=== PATIENT | female | born 1960 | race African-American/Black ===

== ENCOUNTER 2024-11-17 15:04 | Inpatient (IN) | payer MEDICARE, BC ==
[~2024-11-17] VITALS: Ht 154.9 cm; Wt 65.8 kg
[2024-11-17 16:41] LABS: DIFFERENTIAL COMMENT 0; EOSINOPHILS % 1.9 % (0.0-5.0); HEMOGLOBIN. 9.7 g/dL (12.0-16.0); LYMPHOCYTES % 12.5 % (20.0-50.0); MEAN CORPUSCULAR HEMOGLOBIN 25.3 pg (28.0-32.0); MEAN CORPUSCULAR HGB CONC 33.6 g/dL (31.0-37.0); MEAN CORPUSCULAR VOLUME 75.3 fL (81.0-99.0); MEAN PLATELET VOLUME 6.7 fl (7.4-10.4); MONOCYTES % 6.5 % (2.0-8.0); NEUTROPHILS % 78.1 % (40.0-76.0); PLATELET 328 x1000/uL (130-400); RED BLOOD CELL COUNT 3.84 mill/uL (4.2-5.4); RED CELL DISTRIBUTION WIDTH 19.9 % (11.6-14.6); WHITE BLOOD COUNT 7.3 x1000/uL (4.5-11.0)
[2024-11-17 16:47] LABS: CHLORIDE 89 mEq/L (98-107); POTASSIUM 5.7 mEq/L (3.5-5.1); SODIUM 127 mEq/L (136-145)
[2024-11-17 16:48] LABS: CALCIUM 8.8 mg/dL (8.7-10.4); CARBON DIOXIDE 28 mEq/L (21-32)
[2024-11-17 16:53] LABS: GLUCOSE 102 mg/dL (70-105); UREA NITROGEN BLOOD 43 mg/dL (9-23)
[2024-11-17] MEDS: LABETALOL 5MG/ML 4ML INJ IV ONE (17:05)
[2024-11-17] MEDS: IOHEXOL-350 100 ML BOTTLE ONE (17:11)
[2024-11-17] MEDS: NITROGLYCERIN 0.1MG/HR PATCH TOP ONE (17:12)
[2024-11-17 17:14] LABS: CREATININE 14.1 mg/dL (0.6-1.0); ETHANOL BLOOD < 10 mg/dL (<10)
[2024-11-17 17:56] LABS: PROTHROMBIN TIME 10.7 sec (9.6-11.0)
[2024-11-17 20:00] VITALS: BP 159/76; PULSE 87; RESP 18; TEMP 37.2; O2SAT 99
[2024-11-17] MEDS ORDERED: LABETALOL 5MG/ML 4ML INJ IV PRN (20:15)
[2024-11-17] MEDS: DEXT 5%/0.45% NACL 1000ML 1,000 ML IV SCH (20:30)
[2024-11-17] MEDS ORDERED: [UNRECOGNIZED DRUG - CODE] PO (20:46)
[2024-11-17] MEDS ORDERED: ATOR20TA65 PO (20:46)
[2024-11-17] MEDS ORDERED: AMLO5TAB88 PO (20:46)
[2024-11-17] MEDS ORDERED: LOSA100T33 PO (20:46)
[2024-11-17] MEDS: ATORVASTATIN CALCIUM 40MG TABLET PO SCH (23:10)
[2024-11-18] VITALS (8 sets, daily range): BP systolic 135–193; BP diastolic 61–94; PULSE 80–89; RESP 16–19; TEMP 36.2–36.7; O2SAT 99–100
[2024-11-18] MEDS: HYDRALAZINE 20MG/ML VIAL IV PRN (04:55)
[2024-11-18 06:57] LABS: HEPATITIS B SURFACE ANTIGEN NEGATIVE (Negative)
[2024-11-18 07:18] LABS: HEPATITIS C AB NON REACTIVE (Neg) (Negative)
[2024-11-18] MEDS: CLOPIDOGREL 75MG TABLET PO SCH (09:00)
[2024-11-18] MEDS: HYDRALAZINE HCL 50MG TABLET PO SCH (13:52)
[2024-11-18] MEDS: LABETALOL HCL 100MG TABLET PO SCH (21:05)
[2024-11-19] VITALS (9 sets, daily range): BP systolic 121–195; BP diastolic 65–101; PULSE 74–91; RESP 15–18; TEMP 36.3–37.11408; O2SAT 100
[2024-11-19] MEDS: CLONIDINE 0.1MG TABLET PO PRN (01:58)
[2024-11-19] MEDS: ACETAMINOPHEN 325MG TABLET PO PRN (10:23)
[2024-11-19] MEDS: CLONIDINE 0.1MG TABLET PO SCH (14:30)
[2024-11-19] MEDS: LOSARTAN 100 MG TABLET PO SCH (14:30)
[2024-11-19 17:04] LABS: POTASSIUM 5.3 mEq/L (3.5-5.1)
[2024-11-19 17:05] LABS: CALCIUM 8.4 mg/dL (8.7-10.4)
[2024-11-19 17:10] LABS: HEMATOCRIT. 26.6 % (36.0-48.0); HEMOGLOBIN. 8.7 g/dL (12.0-16.0); MEAN CORPUSCULAR HEMOGLOBIN 24.7 pg (28.0-32.0); MEAN CORPUSCULAR HGB CONC 32.6 g/dL (31.0-37.0); MEAN CORPUSCULAR VOLUME 75.7 fL (81.0-99.0); MEAN PLATELET VOLUME 6.3 fl (7.4-10.4); PLATELET 252 x1000/uL (130-400); RED BLOOD CELL COUNT 3.51 mill/uL (4.2-5.4); RED CELL DISTRIBUTION WIDTH 20.3 % (11.6-14.6); WHITE BLOOD COUNT 6.3 x1000/uL (4.5-11.0)
[2024-11-19 17:15] LABS: CREATININE 14.1 mg/dL (0.6-1.0); DIFFERENTIAL COMMENT 1
[2024-11-19 18:02] LABS: MICROCYTOSIS 1+; PLATELET ESTIMATE NORMAL
[2024-11-19 18:03] LABS: ANISOCYTOSIS 1+; HYPOCHROMASIA 1+
[2024-11-20] VITALS (10 sets, daily range): BP systolic 108–149; BP diastolic 58–76; PULSE 17–92; RESP 16–19; TEMP 36.4–37; O2SAT 97–100
[2024-11-20] MEDS: SODIUM BICARBONATE 8.4% 50MEQ/50ML SYR IV NR (01:30)
[2024-11-20] MEDS: SODIUM CHLORIDE 0.9% 1,000 ML IV SCH (02:11)
[2024-11-20 10:53] LABS: POTASSIUM 4.6 mEq/L (3.5-5.1)
[2024-11-20 10:55] LABS: CALCIUM 8.4 mg/dL (8.7-10.4)
[2024-11-20 11:22] LABS: HEMOGLOBIN. 9.3 g/dL (12.0-16.0); MEAN CORPUSCULAR HEMOGLOBIN 25.8 pg (28.0-32.0); MEAN CORPUSCULAR HGB CONC 34.4 g/dL (31.0-37.0); MEAN CORPUSCULAR VOLUME 75.2 fL (81.0-99.0); MEAN PLATELET VOLUME 6.7 fl (7.4-10.4); PLATELET 317 x1000/uL (130-400); RED BLOOD CELL COUNT 3.59 mill/uL (4.2-5.4); RED CELL DISTRIBUTION WIDTH 20.4 % (11.6-14.6); WHITE BLOOD COUNT 5.8 x1000/uL (4.5-11.0)
[2024-11-20 11:29] LABS: DIFFERENTIAL COMMENT 1
[2024-11-20 11:36] LABS: CREATININE 12.7 mg/dL (0.6-1.0)
[2024-11-20] MEDS: SODIUM CHLORIDE 3% 250 ML IV NR (15:50)
[2024-11-20 16:30] LABS: ANISOCYTOSIS 2+; MICROCYTOSIS 1+; PLATELET ESTIMATE NORMAL
[2024-11-20 18:02] LABS: T4 FREE 1.4 ng/dL (0.89-1.76); THYROID STIMULATING HORMONE 2.89 uIU/mL (0.55-4.78)
[2024-11-20 18:14] LABS: FOLIC ACID (FOLATE) SERUM > 20.00 ng/mL (>5.38)
[2024-11-20 18:17] LABS: VITAMIN B12 SERUM > 2000 pg/mL (211-911)
[2024-11-20 21:28] LABS: BASOPHILS % 0.4 % (0.0-2.0); DIFFERENTIAL COMMENT 0; EOSINOPHILS % 1.4 % (0.0-5.0); HEMATOCRIT. 24.4 % (36.0-48.0); HEMOGLOBIN. 8.6 g/dL (12.0-16.0); LYMPHOCYTES % 10.6 % (20.0-50.0); MEAN CORPUSCULAR HEMOGLOBIN 26.4 pg (28.0-32.0); MEAN CORPUSCULAR HGB CONC 35.2 g/dL (31.0-37.0); MEAN CORPUSCULAR VOLUME 74.9 fL (81.0-99.0); MEAN PLATELET VOLUME 6.6 fl (7.4-10.4); MONOCYTES % 8.1 % (2.0-8.0); NEUTROPHILS % 79.5 % (40.0-76.0); PLATELET 259 x1000/uL (130-400); RED BLOOD CELL COUNT 3.25 mill/uL (4.2-5.4); RED CELL DISTRIBUTION WIDTH 20.1 % (11.6-14.6); WHITE BLOOD COUNT 5.8 x1000/uL (4.5-11.0)
[2024-11-20 21:33] LABS: AMMONIA < 17 uMol/L (<32)
[2024-11-21] VITALS (11 sets, daily range): BP systolic 120–155; BP diastolic 55–90; PULSE 70–88; RESP 14–20; TEMP 36.2–37.1; O2SAT 97–100
[2024-11-21 06:47] LABS: BASOPHILS % 0.7 % (0.0-2.0); DIFFERENTIAL COMMENT 0; EOSINOPHILS % 2.9 % (0.0-5.0); HEMATOCRIT. 24.5 % (36.0-48.0); HEMOGLOBIN. 8.3 g/dL (12.0-16.0); LYMPHOCYTES % 14.4 % (20.0-50.0); MEAN CORPUSCULAR HEMOGLOBIN 25.4 pg (28.0-32.0); MEAN CORPUSCULAR HGB CONC 33.9 g/dL (31.0-37.0); MEAN CORPUSCULAR VOLUME 74.7 fL (81.0-99.0); MEAN PLATELET VOLUME 6.7 fl (7.4-10.4); MONOCYTES % 10.1 % (2.0-8.0); NEUTROPHILS % 71.9 % (40.0-76.0); PLATELET 261 x1000/uL (130-400); RED BLOOD CELL COUNT 3.27 mill/uL (4.2-5.4); RED CELL DISTRIBUTION WIDTH 20.3 % (11.6-14.6); WHITE BLOOD COUNT 4.4 x1000/uL (4.5-11.0)
[2024-11-21 06:58] LABS: CARBON DIOXIDE 23 mEq/L (21-32); CHLORIDE 86 mEq/L (98-107); SODIUM 123 mEq/L (136-145)
[2024-11-21 06:59] LABS: CALCIUM 7.8 mg/dL (8.7-10.4)
[2024-11-21 07:03] LABS: GLUCOSE 112 mg/dL (70-105)
[2024-11-21 07:04] LABS: UREA NITROGEN BLOOD 39 mg/dL (9-23)
[2024-11-21 07:05] LABS: ALANINE AMINOTRANSFERASE 8 IU/L (10-49); ALBUMIN 2.9 g/dL (3.2-4.8); ASPARTATE AMINOTRANSFERASE 19 IU/L (<34)
[2024-11-21 07:06] LABS: BILIRUBIN TOTAL 0.2 mg/dL (0.1-1.0); PROTEIN TOTAL 5.3 g/dL (6.0-8.3)
[2024-11-21 07:30] LABS: CREATININE 11.6 mg/dL (0.6-1.0)
[2024-11-21] MEDS: EPOETIN ALFA-EPBX 4,000 UNIT/ML VIAL SUBCUT NR (22:05)
[2024-11-22] VITALS (11 sets, daily range): BP systolic 125–165; BP diastolic 65–86; PULSE 75–85; RESP 15–19; TEMP 36.3–36.9; O2SAT 99–100
[2024-11-22] MEDS ORDERED: SODIUM CHLORIDE 3% 200 ML IV NR (17:00)
[2024-11-22 18:25] LABS: BASOPHILS % 0.5 % (0.0-2.0); DIFFERENTIAL COMMENT 0; EOSINOPHILS % 2.6 % (0.0-5.0); HEMATOCRIT. 28.6 % (36.0-48.0); HEMOGLOBIN. 9.2 g/dL (12.0-16.0); MEAN CORPUSCULAR HEMOGLOBIN 24.4 pg (28.0-32.0); MEAN CORPUSCULAR HGB CONC 32.1 g/dL (31.0-37.0); MEAN CORPUSCULAR VOLUME 76.1 fL (81.0-99.0); MEAN PLATELET VOLUME 7.1 fl (7.4-10.4); MONOCYTES % 7.1 % (2.0-8.0); NEUTROPHILS % 80.8 % (40.0-76.0); PLATELET 308 x1000/uL (130-400); RED BLOOD CELL COUNT 3.75 mill/uL (4.2-5.4); RED CELL DISTRIBUTION WIDTH 20.5 % (11.6-14.6); WHITE BLOOD COUNT 5.2 x1000/uL (4.5-11.0)
[2024-11-22 18:26] LABS: CHLORIDE 85 mEq/L (98-107); POTASSIUM 4.2 mEq/L (3.5-5.1); SODIUM 121 mEq/L (136-145)
[2024-11-22 18:27] LABS: CALCIUM 7.5 mg/dL (8.7-10.4); CARBON DIOXIDE 24 mEq/L (21-32)
[2024-11-22 18:32] LABS: GLUCOSE 85 mg/dL (70-105); UREA NITROGEN BLOOD 37 mg/dL (9-23)
[2024-11-22 18:34] LABS: ALANINE AMINOTRANSFERASE 25 IU/L (10-49); ALBUMIN 3.1 g/dL (3.2-4.8); ASPARTATE AMINOTRANSFERASE 41 IU/L (<34); BILIRUBIN TOTAL 0.2 mg/dL (0.1-1.0); PROTEIN TOTAL 5.8 g/dL (6.0-8.3)
[2024-11-22 18:41] LABS: CREATININE 10.9 mg/dL (0.6-1.0)
[2024-11-22] MEDS: LANTHANUM CARBONATE 500MG CHEW TABLET PO SCH (20:00)
[2024-11-22] MEDS ORDERED: SODIUM CHLORIDE 3% 500 ML IV ONE (21:00)
[2024-11-22] MEDS: SODIUM CHLORIDE 3% 200 ML IV ONE (21:40)
[2024-11-22 23:18] LABS: BODY FLUID MONOCYTES 45 %; BODY FLUID RBC 338 /cu mm (0-2000); BODY FLUID WBC 115 /cu mm (0-200)
[2024-11-23] VITALS (8 sets, daily range): BP systolic 113–159; BP diastolic 57–100; PULSE 71–79; RESP 13–18; TEMP 36.2–37.4; O2SAT 97–100
[2024-11-23 06:01] LABS: BASOPHILS % 0.5 % (0.0-2.0); DIFFERENTIAL COMMENT 0; EOSINOPHILS % 3.3 % (0.0-5.0); HEMOGLOBIN. 8.2 g/dL (12.0-16.0); LYMPHOCYTES % 10.1 % (20.0-50.0); MEAN CORPUSCULAR HEMOGLOBIN 25.4 pg (28.0-32.0); MEAN CORPUSCULAR HGB CONC 34.1 g/dL (31.0-37.0); MEAN CORPUSCULAR VOLUME 74.6 fL (81.0-99.0); MEAN PLATELET VOLUME 6.8 fl (7.4-10.4); MONOCYTES % 11.2 % (2.0-8.0); NEUTROPHILS % 74.9 % (40.0-76.0); PLATELET 266 x1000/uL (130-400); RED BLOOD CELL COUNT 3.21 mill/uL (4.2-5.4); RED CELL DISTRIBUTION WIDTH 19.8 % (11.6-14.6); WHITE BLOOD COUNT 4.4 x1000/uL (4.5-11.0)
[2024-11-23 06:32] LABS: CALCIUM 7.5 mg/dL (8.7-10.4)
[2024-11-23] MEDS: CALCIUM 1250MG TABLET (500MG ELEMENTAL CALCIUM) PO SCH (10:26)
[2024-11-23] MEDS ORDERED: EPOETIN ALFA 10000UNITS/ML VIAL SUBCUT NR (21:00)
[2024-11-23] MEDS: EPOETIN ALFA-EPBX 4,000 UNIT/ML VIAL SUBCUT NR (21:56)
[2024-11-24] VITALS (9 sets, daily range): BP systolic 16–146; BP diastolic 55–80; PULSE 68–77; RESP 15–18; TEMP 36.3–37.2; O2SAT 98–100
[2024-11-24 07:36] LABS: POTASSIUM 4.1 mEq/L (3.5-5.1)
[2024-11-24 07:37] LABS: CALCIUM 7.8 mg/dL (8.7-10.4)
[2024-11-24 08:28] LABS: CREATININE 10.6 mg/dL (0.6-1.0)
[2024-11-24] MEDS ORDERED: SODIUM CHLORIDE 3% 500ML IV SOLN IV ONE (13:30)
[2024-11-24] MEDS: SODIUM CHLORIDE 3% 500 ML IV NR (17:50)
[2024-11-25] VITALS (7 sets, daily range): BP systolic 124–167; BP diastolic 57–78; PULSE 70–79; RESP 14–20; TEMP 36.3–37.2; O2SAT 98–100
[2024-11-25 10:21] LABS: BASOPHILS % 0.9 % (0.0-2.0); DIFFERENTIAL COMMENT 0; EOSINOPHILS % 3.1 % (0.0-5.0); HEMATOCRIT. 25.2 % (36.0-48.0); HEMOGLOBIN. 8.4 g/dL (12.0-16.0); LYMPHOCYTES % 10.2 % (20.0-50.0); MEAN CORPUSCULAR HEMOGLOBIN 25.8 pg (28.0-32.0); MEAN CORPUSCULAR HGB CONC 33.5 g/dL (31.0-37.0); MEAN CORPUSCULAR VOLUME 77.2 fL (81.0-99.0); MEAN PLATELET VOLUME 6.7 fl (7.4-10.4); MONOCYTES % 7.2 % (2.0-8.0); NEUTROPHILS % 78.6 % (40.0-76.0); PLATELET 317 x1000/uL (130-400); RED BLOOD CELL COUNT 3.27 mill/uL (4.2-5.4); RED CELL DISTRIBUTION WIDTH 19.6 % (11.6-14.6); WHITE BLOOD COUNT 6.4 x1000/uL (4.5-11.0)
[2024-11-25 10:28] LABS: POTASSIUM 4.4 mEq/L (3.5-5.1)
[2024-11-25 10:29] LABS: CALCIUM 7.8 mg/dL (8.7-10.4)
[2024-11-25 10:40] LABS: CREATININE 10.9 mg/dL (0.6-1.0)
[2024-11-25] MEDS: HYDRALAZINE 20MG/ML VIAL IV NR (12:11)
== END 2024-11-25 14:50 | disposition home health service (06) | DRG 64 ==
LOC: ER 15:04 → 5WST 18:44
PROVIDERS: ADMIT Family Medicine Adult Medicine; ATTEND Family Medicine Adult Medicine
PROC: 3E1M39Z Irrigation of Peritoneal Cavity using Dialysate, Percutaneous Approach (ICD-10-PCS; principal; 2024-11-18)
PROC: 3E1M39Z Irrigation of Peritoneal Cavity using Dialysate, Percutaneous Approach (ICD-10-PCS; 2024-11-19)
PROC: 3E1M39Z Irrigation of Peritoneal Cavity using Dialysate, Percutaneous Approach (ICD-10-PCS; 2024-11-20)
PROC: 3E1M39Z Irrigation of Peritoneal Cavity using Dialysate, Percutaneous Approach (ICD-10-PCS; 2024-11-21)
PROC: 3E1M39Z Irrigation of Peritoneal Cavity using Dialysate, Percutaneous Approach (ICD-10-PCS; 2024-11-22)
PROC: 3E1M39Z Irrigation of Peritoneal Cavity using Dialysate, Percutaneous Approach (ICD-10-PCS; 2024-11-23)
PROC: 3E1M39Z Irrigation of Peritoneal Cavity using Dialysate, Percutaneous Approach (ICD-10-PCS; 2024-11-24)
DX: I63.40 Cerebral infarction due to embolism of unspecified cerebral artery (principal); G93.41 Metabolic encephalopathy; K65.9 Peritonitis, unspecified; N18.6 End stage renal disease; I12.0 Hypertensive chronic kidney disease with stage 5 chronic kidney disease or end stage renal disease; E87.1 Hypo-osmolality and hyponatremia; K56.7 Ileus, unspecified; G81.94 Hemiplegia, unspecified affecting left nondominant side; R41.82 Altered mental status, unspecified; E78.00 Pure hypercholesterolemia, unspecified; G51.0 Bell's palsy; F22 Delusional disorders; D64.9 Anemia, unspecified; E87.5 Hyperkalemia; F80.9 Developmental disorder of speech and language, unspecified; Z99.2 Dependence on renal dialysis; I69.320 Aphasia following cerebral infarction; R63.1 Polydipsia; Z79.899 Other long term (current) drug therapy; Z82.49 Family history of ischemic heart disease and other diseases of the circulatory system; Z88.5 Allergy status to narcotic agent
CPT/HCPCS: 36415; 70496; 70498; 70551; 71045; 80048; 80053; 80061; 80320; 82140; 82607; 82746; 82962; 83036; 84145; 84439; 84443; 84481; 85025; 86705; 87340; 90945; 92610; 93005; 93306; 93970; 97116; 97162; 97166; 97530; 99285; A4606; J0360; J0885; J3490; J7030; Q9967; G0480